=== PATIENT | male | born 1990 | race Caucasian/White ===

== ENCOUNTER 2024-11-03 04:25 | Emergency (ER) | payer MEDICAID ==
[~2024-11-03] VITALS: Ht 167.6 cm; Wt 72.7 kg
[2024-11-03 04:28] VITALS: O2SAT 98
[2024-11-03 04:32] VITALS: BP 118/75; PULSE 80; RESP 20; TEMP 36.5; O2SAT 99
[2024-11-03] MEDS: TETANUS, DIPHTHERIA, PERTUSSIS VAC/PF 0.5ML (>10YR OLD) IM ONE (06:13)
== END 2024-11-03 10:28 | disposition home or self-care (01) ==
LOC: ER 04:41
DX: S01.01XA Laceration without foreign body of scalp, initial encounter (principal); R51.9 Headache, unspecified; X58.XXXA Exposure to other specified factors, initial encounter; Y93.89 Activity, other specified; Y92.89 Other specified places as the place of occurrence of the external cause; Y99.8 Other external cause status
CPT/HCPCS: 70450; 90715; 12001; 90471; 99285; Z7610 ×4